=== PATIENT | male | born 1970 | race Hispanic/Latino ===

== ENCOUNTER 2024-02-12 20:02 | Emergency (ER) | payer SELFPAY ==
[~2024-02-12] VITALS: Ht 177.8 cm; Wt 102.5 kg
[2024-02-12 20:28] VITALS: PULSE 91; RESP 16; TEMP 97.8; O2SAT 100
[2024-02-12] MEDS ORDERED: TETANUS/DIPHTHERIA TOX ADULT 0.5 ML SYR ONE (20:40)
[2024-02-12] MEDS: TETANUS/DIPHTHERIA TOX ADULT 0.5 ML SYR IM ONE (20:42)
== END 2024-02-12 20:43 | disposition home or self-care (01) ==
LOC: ER 20:08
DX: S61.210A Laceration without foreign body of right index finger without damage to nail, initial encounter (principal); W45.8XXA Other foreign body or object entering through skin, initial encounter; W22.8XXA Striking against or struck by other objects, initial encounter; Y92.9 Unspecified place or not applicable; I10 Essential (primary) hypertension; E11.9 Type 2 diabetes mellitus without complications; E78.5 Hyperlipidemia, unspecified; Z72.0 Tobacco use
CPT/HCPCS: 90714; 99283

== ENCOUNTER 2024-08-24 10:45 | Emergency (ER) | payer SELFPAY ==
[~2024-08-24] VITALS: Ht 177.8 cm; Wt 102.5 kg
[2024-08-24 11:00] VITALS: PULSE 92; RESP 18; TEMP 97.6
[2024-08-24] MEDS ORDERED: TAMIFLU75 MG PO (11:36)
[2024-08-24 11:48] VITALS: BP 142/65; PULSE 78; RESP 16; TEMP 98.3; O2SAT 98
== END 2024-08-24 12:30 | disposition home or self-care (01) ==
LOC: ER 11:32
DX: R05.9 Cough, unspecified (principal); J11.1 Influenza due to unidentified influenza virus with other respiratory manifestations; I10 Essential (primary) hypertension; E11.9 Type 2 diabetes mellitus without complications; E78.5 Hyperlipidemia, unspecified; F17.210 Nicotine dependence, cigarettes, uncomplicated
CPT/HCPCS: 99283